=== PATIENT | male | born 1990 | race Caucasian/White ===

== ENCOUNTER 2016-10-19 16:42 | Emergency (ER) | payer BC, OTHER ==
[2016-10-19 17:06] VITALS: BP 126/85; PULSE 72; RESP 14; TEMP 98.8; O2SAT 96
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
== END 2016-10-19 17:43 | disposition home or self-care (01) ==
LOC: CED 16:42
DX: T20.10XA Burn of first degree of head, face, and neck, unspecified site, initial encounter (principal); H10.213 Acute toxic conjunctivitis, bilateral
CPT/HCPCS: G0463-PO

== ENCOUNTER 2016-10-29 15:34 | Emergency (ER) | payer OTHER ==
[2016-10-29 15:45] VITALS: RESP 16; TEMP 98.2
[2016-10-29 15:56] LABS: LEUKOCYTE ESTERASE,URINE NEGATIVE (NEGATIVE); NITRITE,URINE NEGATIVE (NEGATIVE); PH,URINE 6.5 (5.0-7.5)
[2016-10-29 15:57] LABS: COLOR DARK YELLOW
[2016-10-29 16:03] LABS: AMORPHOUS TRACE /hpf (NONE-1+); MUCUS 3+ /lpf (NONE-1+); RBC,URINE OCCASIONAL /hpf (0-3); WBC,URINE NONE SEEN /hpf (0-3)
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
[2016-10-29] MEDS ORDERED: cefTRIAXone 250 MG VIAL IM ONE (17:14)
[2016-10-29] MEDS ORDERED: AZITHROMYCIN 250 MG TAB PO ONE (17:14)
[2016-10-29 17:52] VITALS: BP 133/88; PULSE 78; O2SAT 96
[2016-10-30 12:37] LABS: CHLAMYDIA AMPLIFICATION GENPRB NEGATIVE (NEGATIVE)
== END 2016-10-29 17:50 | disposition home or self-care (01) ==
LOC: CED 15:34
DX: R36.9 Urethral discharge, unspecified (principal)
CPT/HCPCS: 81003-PO; 81015-PO; 96372-PO; 99214-PO; G0463-PO; J0696